=== PATIENT | female | born 1990 | race Caucasian/White ===

== ENCOUNTER 2020-10-24 14:16 | Inpatient (IN) | payer OTHER ==
[2020-10-24] MEDS ORDERED: ACETAMINOPHEN 325 MG TABLET (FP) PO PRN (15:56)
[2020-10-24] MEDS ORDERED: guaiFENesin 200 MG/10 ML 10 ML UNIT-DOSE CUPS PO PRN (15:56)
[2020-10-24] MEDS ORDERED: LOPERAMIDE HCL 2 MG CAPSULE PO PRN (15:56)
[2020-10-24] MEDS ORDERED: MAGNESIUM CITRATE 300 ML BOTTLE PO PRN (15:56)
[2020-10-24] MEDS ORDERED: MAG HYDROX/AL HYDROX/SIMETH 30 ML UNIT-DOSE CUP PO PRN (15:56)
[2020-10-24] MEDS ORDERED: MAGNESIUM HYDROX 2400MG/30ML ORAL SUSPENSION 30 ML CUP PO PRN (15:56)
[2020-10-24] MEDS ORDERED: IBUPROFEN 400 MG TABLET (FP) PO PRN (15:56)
[2020-10-24] MEDS ORDERED: P-EPHED 60MG/TRIPROLIDI 2.5MG TABLET PO PRN (15:56)
[2020-10-24 16:17] VITALS: BMI 33.1
[2020-10-24] MEDS: THIAMINE HCL 100 MG TABLET (FP) PO SCH (21:55)
[2020-10-24] MEDS: hydrOXYzine PAMOATE 25 MG CAPSULE (FP) PO PRN (21:55)
[2020-10-24] MEDS: MELATONIN 5 MG TABLETS PO SCH (21:55)
[2020-10-25] MEDS: PRENATAL VITAMINS W/ FOLIC ACID TABLET (FP) PO SCH (12:12)
[2020-10-25] MEDS: NICOTINE 14 MG/24 HOURS TOPICAL PATCH TD SCH (12:13)
[2020-10-25] MEDS: NICOTINE 10 MG CARTRIDGE (INHALER) IH PRN ×2 (12:13→18:03)
[2020-10-25] MEDS ORDERED: APIXABAN 5 MG TABLET PO ONE (12:15)
[2020-10-25 12:48] LABS: HEMATOCRIT 38.3 % (32.4-45.2); HEMOGLOBIN 13.3 GM/dL (10.7-15.3); MCH 31.3 pg (25.7-33.7); MCHC 34.7 g/dl (32.0-36.0); MEAN CELL VOLUME 90.3 fl (80-96); MEAN PLT VOLUME 8.2 fl (7.5-11.1); PLATELET COUNT 155 10^3/uL (134-434); RBC 4.24 M/mm3 (3.60-5.2); RDW 13.2 % (11.6-15.6); WHITE BLOOD COUNT 5.6 K/mm3 (4.0-10.0)
[2020-10-25 13:12] LABS: SYPHILIS W/ RPR CONF NON-REACTIVE (NONREACTIVE)
[2020-10-25] MEDS: NICOTINE POLACRILEX 4 MG GUM BC PRN ×2 (13:22→21:23)
[2020-10-25 14:57] LABS: CALCIUM 8.3 mg/dL (8.5-10.1)
[2020-10-25 14:59] LABS: ALBUMIN 2.9 g/dl (3.4-5.0); BLOOD UREA NITROGEN 7.8 mg/dL (7-18)
[2020-10-25 15:02] LABS: CREATININE 0.8 mg/dL (0.55-1.3)
[2020-10-25 15:03] LABS: BILIRUBIN,TOTAL 0.5 mg/dL (0.2-1); TOT PROT 5.7 g/dl (6.4-8.2)
[2020-10-25] MEDS: busPIRone HCL 10 MG TABLET (FP) PO SCH ×2 (15:10→21:21)
[2020-10-25] MEDS: ESCITALOPRAM OXALATE 10 MG TABLET PO SCH (15:10)
[2020-10-25] MEDS ORDERED: COLLOIDAL OATMEAL 1 BAR EACH TP PRN (15:56)
[2020-10-25] MEDS: traZODone HCL 50 MG TABLET (FP) PO SCH (21:21)
[2020-10-25] MEDS: MELATONIN 5 MG TABLETS PO SCH (21:22)
[2020-10-25] MEDS: THIAMINE HCL 100 MG TABLET (FP) PO SCH (21:22)
[2020-10-25] MEDS: APIXABAN 5 MG TABLET PO SCH (21:22)
[2020-10-26] MEDS: ESCITALOPRAM OXALATE 10 MG TABLET PO SCH (10:32)
[2020-10-26] MEDS: busPIRone HCL 10 MG TABLET (FP) PO SCH ×2 (10:32→21:43)
[2020-10-26] MEDS: NICOTINE 14 MG/24 HOURS TOPICAL PATCH TD SCH (10:34)
[2020-10-26] MEDS: PRENATAL VITAMINS W/ FOLIC ACID TABLET (FP) PO SCH (10:34)
[2020-10-26] MEDS: APIXABAN 5 MG TABLET PO SCH ×2 (11:31→21:44)
[2020-10-26] MEDS: NICOTINE 10 MG CARTRIDGE (INHALER) IH PRN ×3 (11:33→21:44)
[2020-10-26] MEDS: NICOTINE POLACRILEX 4 MG GUM BC PRN ×2 (12:32→20:40)
[2020-10-26 15:18] LABS: EPI CELLS >36 /uL (0-25.1); HYALINE CASTS 1 /uL (0-3.1); PH,URINE 7.5 (5.0-8.0); URINE APPEARANCE CLOUDY; URINE BACTERIA 1624 /uL (0-1359); URINE BILIRUBIN NEGATIVE (NEGATIVE); URINE COLOR YELLOW; URINE GLUCOSE (UA) NEGATIVE (NEGATIVE); URINE KETONE NEGATIVE (NEGATIVE); URINE LEUK ESTERASE 2+ (NEGATIVE); URINE NITRITE NEGATIVE (NEGATIVE); URINE PROTEIN NEGATIVE (NEGATIVE); URINE RBC 5 /uL (0-23.9); URINE WBC 35 /uL (0-25.8)
[2020-10-26] MEDS: MELATONIN 5 MG TABLETS PO SCH (21:42)
[2020-10-26] MEDS: THIAMINE HCL 100 MG TABLET (FP) PO SCH (21:42)
[2020-10-26] MEDS: traZODone HCL 50 MG TABLET (FP) PO SCH (21:43)
[2020-10-27] MEDS: PRENATAL VITAMINS W/ FOLIC ACID TABLET (FP) PO SCH (12:40)
[2020-10-27] MEDS: busPIRone HCL 10 MG TABLET (FP) PO SCH ×2 (12:41→21:29)
[2020-10-27] MEDS: NICOTINE 14 MG/24 HOURS TOPICAL PATCH TD SCH (12:41)
[2020-10-27] MEDS: APIXABAN 5 MG TABLET PO SCH ×2 (12:41→21:29)
[2020-10-27] MEDS: ESCITALOPRAM OXALATE 10 MG TABLET PO SCH (12:41)
[2020-10-27] MEDS: NICOTINE POLACRILEX 4 MG GUM BC PRN ×2 (12:41→17:33)
[2020-10-27] MEDS: NICOTINE 10 MG CARTRIDGE (INHALER) IH PRN ×2 (14:37→21:30)
[2020-10-27] MEDS ORDERED: PT OWN MED DRAWER 7, Y5N ONE (19:24)
[2020-10-27] MEDS: THIAMINE HCL 100 MG TABLET (FP) PO SCH (21:29)
[2020-10-27] MEDS: MELATONIN 5 MG TABLETS PO SCH (21:29)
[2020-10-27] MEDS: traZODone HCL 50 MG TABLET (FP) PO SCH (21:29)
[2020-10-28] MEDS: hydrOXYzine PAMOATE 25 MG CAPSULE (FP) PO PRN ×2 (00:31→21:15)
[2020-10-28] MEDS: busPIRone HCL 10 MG TABLET (FP) PO SCH ×2 (11:34→21:16)
[2020-10-28] MEDS: APIXABAN 5 MG TABLET PO SCH ×2 (11:35→21:16)
[2020-10-28] MEDS: NICOTINE 14 MG/24 HOURS TOPICAL PATCH TD SCH (11:36)
[2020-10-28] MEDS: ESCITALOPRAM OXALATE 10 MG TABLET PO SCH (11:36)
[2020-10-28] MEDS: PRENATAL VITAMINS W/ FOLIC ACID TABLET (FP) PO SCH (11:36)
[2020-10-28] MEDS: NICOTINE POLACRILEX 4 MG GUM BC PRN ×2 (12:54→17:12)
[2020-10-28] MEDS: NICOTINE 10 MG CARTRIDGE (INHALER) IH PRN ×2 (14:19→21:18)
[2020-10-28] MEDS ORDERED: ACETAMINOPHEN 325 MG TABLET (FP) PO PRN (20:09)
[2020-10-28] MEDS: traZODone HCL 50 MG TABLET (FP) PO SCH (21:16)
[2020-10-28] MEDS: MELATONIN 5 MG TABLETS PO SCH (21:16)
[2020-10-28] MEDS: THIAMINE HCL 100 MG TABLET (FP) PO SCH (21:16)
[2020-10-28] MEDS: METHOCARBAMOL 500 MG TABLET PO SCH (21:16)
[2020-10-29] MEDS: PRENATAL VITAMINS W/ FOLIC ACID TABLET (FP) PO SCH (10:16)
[2020-10-29] MEDS: NICOTINE 14 MG/24 HOURS TOPICAL PATCH TD SCH (10:16)
[2020-10-29] MEDS: busPIRone HCL 10 MG TABLET (FP) PO SCH ×2 (10:17→21:06)
[2020-10-29] MEDS: APIXABAN 5 MG TABLET PO SCH ×2 (10:17→21:06)
[2020-10-29] MEDS: ESCITALOPRAM OXALATE 10 MG TABLET PO SCH (10:17)
[2020-10-29] MEDS: METHOCARBAMOL 500 MG TABLET PO SCH ×2 (10:17→21:07)
[2020-10-29] MEDS: NICOTINE POLACRILEX 4 MG GUM BC PRN ×2 (12:56→17:36)
[2020-10-29] MEDS: traZODone HCL 50 MG TABLET (FP) PO SCH (21:06)
[2020-10-29] MEDS: MELATONIN 5 MG TABLETS PO SCH (21:06)
[2020-10-29] MEDS: THIAMINE HCL 100 MG TABLET (FP) PO SCH (21:06)
[2020-10-29] MEDS: hydrOXYzine PAMOATE 25 MG CAPSULE (FP) PO PRN (21:07)
[2020-10-29] MEDS: NICOTINE 10 MG CARTRIDGE (INHALER) IH PRN (21:08)
[2020-10-30] MEDS ORDERED: PT OWN MED DRAWER 7, Y5N ONE ×2 (09:49→10:50)
[2020-10-30] MEDS: METHOCARBAMOL 500 MG TABLET PO SCH ×2 (10:50→21:15)
[2020-10-30] MEDS: APIXABAN 5 MG TABLET PO SCH ×2 (10:50→21:16)
[2020-10-30] MEDS: PRENATAL VITAMINS W/ FOLIC ACID TABLET (FP) PO SCH (10:51)
[2020-10-30] MEDS: NICOTINE 14 MG/24 HOURS TOPICAL PATCH TD SCH (10:51)
[2020-10-30] MEDS: ESCITALOPRAM OXALATE 10 MG TABLET PO SCH (11:07)
[2020-10-30] MEDS: busPIRone HCL 10 MG TABLET (FP) PO SCH ×2 (11:07→21:16)
[2020-10-30] MEDS: NICOTINE POLACRILEX 4 MG GUM BC PRN ×2 (12:25→18:14)
[2020-10-30] MEDS: traZODone HCL 50 MG TABLET (FP) PO SCH (21:15)
[2020-10-30] MEDS: MELATONIN 5 MG TABLETS PO SCH (21:16)
[2020-10-30] MEDS: hydrOXYzine PAMOATE 25 MG CAPSULE (FP) PO PRN (21:16)
[2020-10-30] MEDS: THIAMINE HCL 100 MG TABLET (FP) PO SCH (21:17)
[2020-10-30] MEDS: NICOTINE 10 MG CARTRIDGE (INHALER) IH PRN (21:18)
[2020-10-31] MEDS: METHOCARBAMOL 500 MG TABLET PO SCH ×2 (10:21→21:10)
[2020-10-31] MEDS: ESCITALOPRAM OXALATE 10 MG TABLET PO SCH (10:21)
[2020-10-31] MEDS: PRENATAL VITAMINS W/ FOLIC ACID TABLET (FP) PO SCH (10:21)
[2020-10-31] MEDS: APIXABAN 5 MG TABLET PO SCH ×2 (10:22→21:10)
[2020-10-31] MEDS: busPIRone HCL 10 MG TABLET (FP) PO SCH ×2 (10:22→21:10)
[2020-10-31] MEDS: NICOTINE 14 MG/24 HOURS TOPICAL PATCH TD SCH (10:22)
[2020-10-31] MEDS: NICOTINE POLACRILEX 4 MG GUM BC PRN (18:01)
[2020-10-31] MEDS ORDERED: PT OWN MED DRAWER 7, Y5N ONE (18:54)
[2020-10-31] MEDS: THIAMINE HCL 100 MG TABLET (FP) PO SCH (21:10)
[2020-10-31] MEDS: MELATONIN 5 MG TABLETS PO SCH (21:10)
[2020-10-31] MEDS: hydrOXYzine PAMOATE 25 MG CAPSULE (FP) PO PRN (21:11)
[2020-10-31] MEDS: traZODone HCL 50 MG TABLET (FP) PO SCH (21:11)
[2020-10-31] MEDS: NICOTINE 10 MG CARTRIDGE (INHALER) IH PRN (21:12)
[2020-11-01] MEDS: ESCITALOPRAM OXALATE 10 MG TABLET PO SCH (12:29)
[2020-11-01] MEDS: busPIRone HCL 10 MG TABLET (FP) PO SCH ×2 (12:29→21:33)
[2020-11-01] MEDS: METHOCARBAMOL 500 MG TABLET PO SCH ×2 (12:29→21:33)
[2020-11-01] MEDS: NICOTINE 14 MG/24 HOURS TOPICAL PATCH TD SCH (12:30)
[2020-11-01] MEDS: PRENATAL VITAMINS W/ FOLIC ACID TABLET (FP) PO SCH (12:31)
[2020-11-01] MEDS: APIXABAN 5 MG TABLET PO SCH ×2 (12:31→21:33)
[2020-11-01] MEDS: NICOTINE POLACRILEX 4 MG GUM BC PRN (12:51)
[2020-11-01] MEDS: THIAMINE HCL 100 MG TABLET (FP) PO SCH (21:33)
[2020-11-01] MEDS: traZODone HCL 50 MG TABLET (FP) PO SCH (21:33)
[2020-11-01] MEDS: hydrOXYzine PAMOATE 25 MG CAPSULE (FP) PO PRN (21:33)
[2020-11-01] MEDS: MELATONIN 5 MG TABLETS PO SCH (21:33)
[2020-11-01] MEDS: NICOTINE 10 MG CARTRIDGE (INHALER) IH PRN (21:34)
[2020-11-02] MEDS: APIXABAN 5 MG TABLET PO SCH ×2 (11:25→21:14)
[2020-11-02] MEDS: busPIRone HCL 10 MG TABLET (FP) PO SCH ×2 (11:25→21:14)
[2020-11-02] MEDS: LIDOCAINE 5% TOPICAL PATCH TP SCH (11:26)
[2020-11-02] MEDS: ESCITALOPRAM OXALATE 10 MG TABLET PO SCH (11:26)
[2020-11-02] MEDS: PRENATAL VITAMINS W/ FOLIC ACID TABLET (FP) PO SCH (11:26)
[2020-11-02] MEDS: NICOTINE 14 MG/24 HOURS TOPICAL PATCH TD SCH (11:26)
[2020-11-02] MEDS: METHOCARBAMOL 500 MG TABLET PO SCH ×2 (11:26→21:14)
[2020-11-02] MEDS: NICOTINE POLACRILEX 4 MG GUM BC PRN (14:35)
[2020-11-02] MEDS: NICOTINE 10 MG CARTRIDGE (INHALER) IH PRN ×2 (15:59→21:18)
[2020-11-02] MEDS: traZODone HCL 50 MG TABLET (FP) PO SCH (21:14)
[2020-11-02] MEDS: THIAMINE HCL 100 MG TABLET (FP) PO SCH (21:15)
[2020-11-02] MEDS: MELATONIN 5 MG TABLETS PO SCH (21:15)
[2020-11-02] MEDS: hydrOXYzine PAMOATE 25 MG CAPSULE (FP) PO PRN (21:17)
[2020-11-02] MEDS: LIDOCAINE PATCH REMOVAL MC SCH (23:10)
[2020-11-03] MEDS: busPIRone HCL 10 MG TABLET (FP) PO SCH ×2 (10:45→21:12)
[2020-11-03] MEDS: ESCITALOPRAM OXALATE 10 MG TABLET PO SCH (10:45)
[2020-11-03] MEDS: PRENATAL VITAMINS W/ FOLIC ACID TABLET (FP) PO SCH (10:45)
[2020-11-03] MEDS: NICOTINE 14 MG/24 HOURS TOPICAL PATCH TD SCH (10:46)
[2020-11-03] MEDS: APIXABAN 5 MG TABLET PO SCH ×2 (10:46→21:13)
[2020-11-03] MEDS: LIDOCAINE 5% TOPICAL PATCH TP SCH (10:46)
[2020-11-03] MEDS: METHOCARBAMOL 500 MG TABLET PO SCH ×2 (10:46→21:12)
[2020-11-03] MEDS ORDERED: PT OWN MED DRAWER 7, Y5N ONE (20:50)
[2020-11-03] MEDS: hydrOXYzine PAMOATE 25 MG CAPSULE (FP) PO PRN (21:12)
[2020-11-03] MEDS: THIAMINE HCL 100 MG TABLET (FP) PO SCH (21:13)
[2020-11-03] MEDS: LIDOCAINE PATCH REMOVAL MC SCH (21:13)
[2020-11-03] MEDS: traZODone HCL 50 MG TABLET (FP) PO SCH (21:13)
[2020-11-03] MEDS: MELATONIN 5 MG TABLETS PO SCH (21:13)
[2020-11-03] MEDS: NICOTINE 10 MG CARTRIDGE (INHALER) IH PRN (21:21)
[2020-11-04] MEDS: ESCITALOPRAM OXALATE 10 MG TABLET PO SCH (10:37)
[2020-11-04] MEDS: METHOCARBAMOL 500 MG TABLET PO SCH ×2 (10:37→21:57)
[2020-11-04] MEDS: busPIRone HCL 10 MG TABLET (FP) PO SCH ×2 (10:37→21:57)
[2020-11-04] MEDS: PRENATAL VITAMINS W/ FOLIC ACID TABLET (FP) PO SCH (10:37)
[2020-11-04] MEDS: APIXABAN 5 MG TABLET PO SCH ×2 (10:38→21:58)
[2020-11-04] MEDS: LIDOCAINE 5% TOPICAL PATCH TP SCH (10:39)
[2020-11-04] MEDS: NICOTINE 14 MG/24 HOURS TOPICAL PATCH TD SCH (10:39)
[2020-11-04] MEDS: NICOTINE POLACRILEX 4 MG GUM BC PRN ×2 (13:18→17:40)
[2020-11-04] MEDS: traZODone HCL 50 MG TABLET (FP) PO SCH (21:57)
[2020-11-04] MEDS: THIAMINE HCL 100 MG TABLET (FP) PO SCH (21:57)
[2020-11-04] MEDS: hydrOXYzine PAMOATE 25 MG CAPSULE (FP) PO PRN (21:58)
[2020-11-04] MEDS: MELATONIN 5 MG TABLETS PO SCH (21:58)
[2020-11-04] MEDS: NICOTINE 10 MG CARTRIDGE (INHALER) IH PRN (21:59)
[2020-11-04] MEDS: LIDOCAINE PATCH REMOVAL MC SCH (21:59)
[2020-11-05] MEDS: NICOTINE 14 MG/24 HOURS TOPICAL PATCH TD SCH (10:43)
[2020-11-05] MEDS: ESCITALOPRAM OXALATE 10 MG TABLET PO SCH (10:43)
[2020-11-05] MEDS: METHOCARBAMOL 500 MG TABLET PO SCH ×2 (10:43→21:50)
[2020-11-05] MEDS: PRENATAL VITAMINS W/ FOLIC ACID TABLET (FP) PO SCH (10:43)
[2020-11-05] MEDS: busPIRone HCL 10 MG TABLET (FP) PO SCH ×2 (10:43→21:50)
[2020-11-05] MEDS: LIDOCAINE 5% TOPICAL PATCH TP SCH (10:44)
[2020-11-05] MEDS: APIXABAN 5 MG TABLET PO SCH ×2 (10:45→21:49)
[2020-11-05] MEDS: NICOTINE POLACRILEX 4 MG GUM BC PRN (17:50)
[2020-11-05] MEDS: traZODone HCL 50 MG TABLET (FP) PO SCH (21:49)
[2020-11-05] MEDS: hydrOXYzine PAMOATE 25 MG CAPSULE (FP) PO PRN (21:50)
[2020-11-05] MEDS: THIAMINE HCL 100 MG TABLET (FP) PO SCH (21:50)
[2020-11-05] MEDS: LIDOCAINE PATCH REMOVAL MC SCH (21:50)
[2020-11-05] MEDS: MELATONIN 5 MG TABLETS PO SCH (21:51)
[2020-11-05] MEDS: NICOTINE 10 MG CARTRIDGE (INHALER) IH PRN (21:52)
[2020-11-06] MEDS: LIDOCAINE 5% TOPICAL PATCH TP SCH (11:14)
[2020-11-06] MEDS: APIXABAN 5 MG TABLET PO SCH ×2 (11:14→21:23)
[2020-11-06] MEDS: ESCITALOPRAM OXALATE 10 MG TABLET PO SCH (11:14)
[2020-11-06] MEDS: busPIRone HCL 10 MG TABLET (FP) PO SCH ×2 (11:14→21:23)
[2020-11-06] MEDS: NICOTINE 14 MG/24 HOURS TOPICAL PATCH TD SCH (11:15)
[2020-11-06] MEDS: PRENATAL VITAMINS W/ FOLIC ACID TABLET (FP) PO SCH (11:15)
[2020-11-06] MEDS: METHOCARBAMOL 500 MG TABLET PO SCH ×2 (11:15→21:23)
[2020-11-06] MEDS: NICOTINE POLACRILEX 4 MG GUM BC PRN ×2 (13:17→17:26)
[2020-11-06] MEDS ORDERED: PT OWN MED DRAWER 7, Y5N ONE (19:51)
[2020-11-06] MEDS: THIAMINE HCL 100 MG TABLET (FP) PO SCH (21:23)
[2020-11-06] MEDS: traZODone HCL 50 MG TABLET (FP) PO SCH (21:23)
[2020-11-06] MEDS: MELATONIN 5 MG TABLETS PO SCH (21:23)
[2020-11-06] MEDS: LIDOCAINE PATCH REMOVAL MC SCH (21:24)
[2020-11-06] MEDS: hydrOXYzine PAMOATE 25 MG CAPSULE (FP) PO PRN (21:24)
[2020-11-06] MEDS: NICOTINE 10 MG CARTRIDGE (INHALER) IH PRN (21:27)
[2020-11-07] MEDS: busPIRone HCL 10 MG TABLET (FP) PO SCH (09:41)
[2020-11-07] MEDS: ESCITALOPRAM OXALATE 10 MG TABLET PO SCH (09:41)
[2020-11-07] MEDS: METHOCARBAMOL 500 MG TABLET PO SCH (09:41)
[2020-11-07] MEDS: APIXABAN 5 MG TABLET PO SCH (09:43)
[2020-11-07] MEDS: NICOTINE 14 MG/24 HOURS TOPICAL PATCH TD SCH (09:44)
[2020-11-07] MEDS: PRENATAL VITAMINS W/ FOLIC ACID TABLET (FP) PO SCH (09:44)
[2020-11-07] MEDS: LIDOCAINE 5% TOPICAL PATCH TP SCH (09:44)
[2020-11-07 11:37] VITALS: BP 106/67; PULSE 98; TEMP 97.3
== END 2020-11-07 09:55 | disposition home or self-care (01) | DRG 772 ==
LOC: YASAS 14:16 → Y5N 16:36
PROVIDERS: ADMIT Allergy & Immunology; ATTEND Allergy & Immunology
PROC: HZ42ZZZ Group Counseling for Substance Abuse Treatment, Cognitive-Behavioral (ICD-10-PCS; principal; 2020-10-24)
DX: F10.20 Alcohol dependence, uncomplicated (principal); F12.20 Cannabis dependence, uncomplicated; F17.210 Nicotine dependence, cigarettes, uncomplicated; F19.280 Other psychoactive substance dependence with psychoactive substance-induced anxiety disorder; F19.282 Other psychoactive substance dependence with psychoactive substance-induced sleep disorder; F31.9 Bipolar disorder, unspecified; F84.5 Asperger's syndrome; J45.909 Unspecified asthma, uncomplicated; Z86.711 Personal history of pulmonary embolism; Z79.01 Long term (current) use of anticoagulants
CPT/HCPCS: 36415; 80053; 81003; 85027; 86780; 86803; 87086; C9803; U0003; U0005